=== PATIENT | female | born 1980 | race Caucasian/White ===

== ENCOUNTER → 2020-06-07 | Outpatient (CLI) | payer BC, OTHER | LOC: RAD 10:13 | DX: M54.9 Dorsalgia, unspecified (principal) | CPT/HCPCS: 71046 ==

== ENCOUNTER 2020-08-29 13:09 | Emergency (ER) | payer BC, OTHER ==
[2020-08-29 14:40] LABS: HEMOGLOBIN 13.1 gm/dl (12.3-15.3); RED BLOOD COUNT 4.6 M/UL (4.00-5.10); WHITE BLOOD COUNT 6.7 K/UL (4.5-11.0)
[2020-08-29 15:03] LABS: BUN/CREATININE RATIO 15 (0-10)
== END 2020-08-29 16:09 | disposition home or self-care (01) ==
LOC: ER1 13:09
PROVIDERS: Emergency Medicine
DX: R10.30 Lower abdominal pain, unspecified (principal); Z90.49 Acquired absence of other specified parts of digestive tract
CPT/HCPCS: 80053; 81001; 83690; 84703; 85025; 96374; 96375; 99284; J1170; J2405; Q9967

== ENCOUNTER → 2020-10-11 | Outpatient (CLI) | payer BC, OTHER | LOC: NM 08:59 | DX: R10.84 Generalized abdominal pain (principal) | CPT/HCPCS: 78264; A9541 ==

== ENCOUNTER → 2021-06-11 | Outpatient (CLI) | payer BC, OTHER | LOC: MAMO 06-06 08:00 | DX: Z12.31 Encounter for screening mammogram for malignant neoplasm of breast (principal) | CPT/HCPCS: 77063; 77067 ==

== ENCOUNTER 2021-07-31 08:29 | Emergency (ER) | payer BC, OTHER ==
[2021-07-31 09:50] LABS: HEMOGLOBIN 13.5 gm/dl (12.3-15.3); RED BLOOD COUNT 4.58 M/UL (4.00-5.10); WHITE BLOOD COUNT 7.5 K/UL (4.5-11.0)
[2021-07-31 10:04] LABS: BUN/CREATININE RATIO 19 (0-10)
== END 2021-07-31 13:40 | disposition home or self-care (01) ==
LOC: ER1 08:29
PROVIDERS: Physician Assistant
DX: R07.89 Other chest pain (principal); Z88.5 Allergy status to narcotic agent; Z88.1 Allergy status to other antibiotic agents; Z79.899 Other long term (current) drug therapy
CPT/HCPCS: 71045; 80053; 82550; 82553; 84484; 85025; 85379; 93005; 96374; 99285; J1885

== ENCOUNTER → 2021-08-19 | Outpatient (CLI) | payer BC, OTHER | LOC: HEART 5 10:40 | DX: R07.9 Chest pain, unspecified (principal) ==

== ENCOUNTER → 2021-11-04 | Outpatient (CLI) | payer BC, OTHER | LOC: KOH-I 08:35 | DX: R42 Dizziness and giddiness (principal); R51.9 Headache, unspecified | CPT/HCPCS: 70551 ==